=== PATIENT | female | born 1960 | race Caucasian/White ===

== ENCOUNTER → 2018-05-10 | Day surgery (SDC) | payer BC, MEDICARE ==
[2018-05-09 11:51] LABS: BASOPHILS # (AUTO) 0.1 (0.0-0.1); BASOPHILS % 0.6 % (0.0-1.0); HEMOGLOBIN 14.4 g/dL (12.0-16.0); LYMPHOCYTES # (AUTO) 2.9 (1.0-3.2); LYMPHOCYTES % 23.6 % (18.0-39.1); MEAN CORPUSCULAR HEMOGLOBIN 29.4 pg (28-32); MEAN CORPUSCULAR HGB CONC 32.7 g/dL (31-35); MONOCYTES # (AUTO) 0.7 (0.2-0.8); MONOCYTES % 5.8 % (4.4-11.3); NEUTROPHILS # (AUTO) 8.5 (2.1-6.9); NEUTROPHILS % 69.5 % (38.7-80.0); PLATELET COUNT 275 x10e3/uL (140-360); RED BLOOD COUNT 4.89 x10e6/uL (3.6-5.1); RED CELL DISTRIBUTION WIDTH 13.1 % (11.7-14.4)
[~2018-05-10] MED LIST: ADVAIR 250-501 EACH INH; ADVAIR 250/501 EA INH; ALBUTEROL SULF 0.083% NEB SOLN 3 ML NEB ONE; BACLOFEN10 MG PO; BENTYL20 MG PO; CARAFATE1 GM PO; CEPHALEXIN500 M1 PO; CHANTIX1 MG; CHERATUSSIN AC118 ML PO; COLESTIPOL HCL1 GM PO; COZAAR50 MG PO; DILTIAZEM HCL30 MG PO; GABAPENTIN100 MG; GEMFIBROZIL600 MG PO; GLIMEPIRIDE2 MG PO; GLUMETZA1000 MG PO; HYDROCODONE-HOMA5 ML; INVOKANA PEG; KETAMINE HCL INJ 50 MG/ML 10 ML VIAL ONE; LIDOCAINE HCL 2% LOCAL INJ 5 ML SDV VIAL INJ ONE; METFORMIN HCL1000 MG; METOCLOPRAMIDE HCL 10 MG/2ML VIAL ONE; MIDAZOLAM HCL 2 MG/2 ML VIAL ONE; OMEPRAZOLE40 MG; PERCOCET 10-321 EACH; PERCOCET 10-321 EACH PO; PRAVACHOL20 MG; PROAIR HFA INH8.5 GM INH; PROPOFOL IV EMULSION 10 MG/ML 20 ML VIAL ONE; PROVENTIL HFA6.7 GM INH; ROBAXIN-750750 MG PO; SERTRALINE; SINGULAIR10 MG PO; VITAMIN D2 PO; VITAMIN D350000 UNIT PO; Z.0.AMBIEN10 MG PO; Z.0.CARDIZEM30 MG PO; Z.0.CRESTOR40 MG PO; Z.0.FLUTICASONE PRO1 NS; Z.0.LISINOPRIL10 MG PO; Z.0.NITROSTAT0.4 MG SL; Z.0.PROTONIX40 MG PO; Z.0.REGLAN10 MG PO; Z.0.ULTRAM50 MG PO; Z.0.VENTOLIN HFA18 G IH; Z.1.METFORMIN HCL100 PO; ZANAFLEX4 MG PO; ZANTAC300 M1 PO; ZANTAC300 MG; ZOCOR40 MG PO; ZOFRAN ODT4 MG PO; ZOFRAN8 MG PO; ZOLOFT50 MG PO; [UNRECOGNIZED DRUG - OTHER] PO
--- NOTE | 2018-05-10 10:11 | Operative Report ---
DATE OF PROCEDURE: May 10, 2018 REFERRING PHYSICIAN: Dr. Codi Chamberlain PROCEDURE PERFORMED: Esophagogastroduodenoscopy with biopsies and esophageal dilatation. INDICATIONS FOR EGD: Upper abdominal pain and dysphagia. MEDICATION: Patient was done under MAC. Please see anesthesiologist's note. PROCEDURE: With the patient in the left lateral decubitus position, the flexible fiberoptic Olympus gastroscope was introduced into the esophagus under direct visualization without any difficulty. There was some patchy erythema noted in the distal esophagus. A mild stricture was noted at the GE junction that was dilated to a size 52-Z[place] Mao. The scope was then advanced with ease into the stomach traversing a small hiatal hernia. Mucosa overlying the antrum and the body revealed some diffuse erythema and moderate edema, and biopsies were obtained and sent to stain for H. pylori. An approximately 8-mm nodule was noted in the antrum that was biopsied. The pylorus was of normal contour and shape. It was intubated with ease. The scope was advanced all the way to the 2nd portion of the duodenum. The scope was then withdrawn slowly. Mucosa overlying the proximal 2nd portion and the duodenal bulb appeared to be within normal limits. The scope was then withdrawn back into the stomach and retroflexed. The mucosa overlying the fundus and the cardia appeared to be within normal limits. The scope was then straightened out. It was subsequently withdrawn. Patient tolerated the procedure well. IMPRESSION 1. Distal esophagitis, mild. 2. Mild stricture at gastroesophageal junction dilated to size 52-Zambian Mao. 3. Small sliding hiatal hernia. 4. Gastritis, biopsied. Biopsies sent to stain for Helicobacter pylori. 4. Approximately, 8-mm nodule, antrum, biopsied. PLAN: Follow up histology. Increase Protonix to 40 mg 1 p.o. a.c. b.i.d. Job#: [id number] RI cc: CODI CHAMBERLAIN MD
== END | disposition home or self-care (01) ==
LOC: OR 07:08
PROVIDERS: ATTEND Internal Medicine Gastroenterology
DX: K22.2 Esophageal obstruction (principal); K20.9 Esophagitis, unspecified; K29.70 Gastritis, unspecified, without bleeding; K44.9 Diaphragmatic hernia without obstruction or gangrene; K31.89 Other diseases of stomach and duodenum; K21.9 Gastro-esophageal reflux disease without esophagitis; K58.9 Irritable bowel syndrome, unspecified; I10 Essential (primary) hypertension; J44.9 Chronic obstructive pulmonary disease, unspecified; E11.9 Type 2 diabetes mellitus without complications; G62.9 Polyneuropathy, unspecified; M79.7 Fibromyalgia; G47.33 Obstructive sleep apnea (adult) (pediatric); E78.00 Pure hypercholesterolemia, unspecified; Z01.812 Encounter for preprocedural laboratory examination; Z79.84 Long term (current) use of oral hypoglycemic drugs; Z68.33 Body mass index [BMI] 33.0-33.9, adult; Z80.0 Family history of malignant neoplasm of digestive organs
CPT/HCPCS: 36415 ×2; 43239; 43450; 82948; 85025; J2001; J2250; J2765

== ENCOUNTER → 2018-05-15 | Outpatient (CLI) | payer BC, MEDICARE ==
[~2018-05-15] MED LIST changes: -ALBUTEROL SULF 0.083% NEB SOLN 3 ML NEB ONE; -KETAMINE HCL INJ 50 MG/ML 10 ML VIAL ONE; -LIDOCAINE HCL 2% LOCAL INJ 5 ML SDV VIAL INJ ONE; -METOCLOPRAMIDE HCL 10 MG/2ML VIAL ONE; -MIDAZOLAM HCL 2 MG/2 ML VIAL ONE; -PROPOFOL IV EMULSION 10 MG/ML 20 ML VIAL ONE; +REGADENOSON 0.4 MG/5 ML SYR IV ONE
--- NOTE | 2018-05-15 17:17 | Cardiology Report ---
DATE OF STUDY: May 15, 2018 NUCLEAR GATED MYOCARDIAL PERFUSION SCAN Nuclear gated myocardial perfusion scan performed as per protocol in the nuclear medicine lab at [facility]. The stress test was supervised by Dr. Antwon Parnell, and I performed only the nuclear interpretation. LEXISCAN STRESS TEST: Lexiscan was injected 0.4 mg intravenously as stress agent. Myoview was injected 10.2 mCi per resting protocol and 32 mCi for stress protocol. IMPRESSION 1. Normal gated myocardial perfusion scan. 2. Left ventricular ejection fraction is 60% to 65%. 3. No evidence of ischemia or scar is noted. Job#: [id number]
== END ==
LOC: NM 10:12
PROVIDERS: ATTEND Internal Medicine Cardiovascular Disease
DX: I25.10 Atherosclerotic heart disease of native coronary artery without angina pectoris (principal)
CPT/HCPCS: 78452; 93017; A9502

== ENCOUNTER → 2018-09-20 | Day surgery (SDC) | payer BC, MEDICARE ==
[2018-09-18 13:51] LABS: ALANINE AMINOTRANSFERASE 40 IU/L (0-55)
[~2018-09-20] MED LIST changes: +ADVIL COLD & S1 EACH; +AFRIN15 ML; +ASPIRIN81 MG; +ATORVASTATIN CA20 MG PO; +DICYCLOMINE HCL20 MG PO; +FENTANYL CITRATE/PF 100MCG/2 ML INJ ONE; +GABAPENTIN300 MG PO; +GLIPIZIDE5 MG PO; +HYOSCYAMINE SULFATE 0.5 MG/ML INJ ONE; +INSULIN REGULAR, HUMAN 100 UNIT/1 ML 3ML VIAL ONE; +LEVOTHYROXINE50 MCG PO; +METHOCARBAMOL750 MG PO; +MIDAZOLAM HCL 2 MG/2 ML VIAL ONE; +MUCINEX DM ER1 EACH PO; +NORCO 10-325 T1 EACH; +PEPCID20 MG; +PROMETHAZINE HC25 M1 PO; +PROPOFOL IV EMULSION 10 MG/ML 50 ML VIAL ONE; -REGADENOSON 0.4 MG/5 ML SYR IV ONE; +SERTRALINE HCL50 MG PO; +XIFAXAN550 MG
--- OUTSIDE RECORDS SUMMARY | 2018-09-20 06:35 | XMS REPORT ---
Author Author [facility] Address Unknown Phone Unavailable Care Team Providers Care Consulting Senior Practice Director Name Role Phone SADIA SOW Unavailable Unavailable Problems This patient has no known problems. Allergies, Adverse Reactions, Alerts This patient has no known allergies or adverse reactions. Medications This patient has no known medications. Results Test Description Test Time Test Comments Text Results Atomic Results Result Comments Stress Test - Treadmill ONLY 2018-05-15 16:48:00 [place] [address] Patient Name : MISTY CASTORENA MR #: [id number] : 1960 Age/Sex: 57/F Adm Physician : SADIA SOW MD Admit Date : Location : [place] Room/Bed : REPORT: Cardiology Report DATE OF STUDY: May 15, 2018 NUCLEAR GATED MYOCARDIAL PERFUSION SCAN Nuclear gated myocardial perfusion scan performed as per protocol in the nuclear medicine lab at [facility]. The stress test was supervised by Dr. Sadia Sow, and I performed only the nuclear interpretation. LEXISCAN STRESS TEST: Lexiscan was injected 0.4 mg intravenously as stress agent. Myoview was injected 10.2 mCi per resting protocol and 32 mCi for stress protocol. IMPRESSION 1. Normal gated myocardial perfusion scan. 2. Left ventricular ejection fraction is 60% to 65%. 3. No evidence of ischemia or scar is noted. Job#: [id number] Signature Date Dictated By: YURIDIA CHAUDHRY MD Transcribed By: RAJAT on 05/15/18 <Electronically signed by YURIDIA CHAUDHRY MD><<Signature on File>>06/08/18 4720 COPY TO:
--- OUTSIDE RECORDS SUMMARY | 2018-09-20 06:35 | XMS REPORT | Continuity of Care Document ---
Author Author [facility] Interface Address Unknown Phone Unavailable Problems Problem Status Onset Date Classification Date Reported Comments Source DX: M50.30=OTHER CERVICAL DISC DEGENERAT Active 02/18/2017 [place] M50.30 - OTHER CERVICAL DISC DEGENERATI Active 12/31/2016 [facility] [place] ICD 787.6 / CPT 97512 67881-80 Active 08/15/2013 [facility] UNK Active 08/15/2013 [facility] Abnormal feces<sup>1</sup> Active 08/13/2013 Problem 09/08/2017 Data migrated from [employer] on 04/19/15. HOLGERD [place],[facility] Incontinence of feces<sup>3</sup> Active 08/13/2013 Problem 09/08/2017 Data migrated from [employer] on 04/19/15. HOLGERD [place],[facility] Urinary incontinence<sup>7</sup> Active 08/13/2013 Problem 09/08/2017 Data migrated from [employer] on 04/19/15. [facility] [place],[facility] Acid reflux Active Problem 09/08/2017 [facility] [place],[facility] Asthma Active Problem 09/08/2017 [facility] [place],[facility] Chronic cough Active Problem 09/08/2017 [facility] [place],[facility] COPD Active Problem 09/08/2017 [facility] [place],[facility] Diabetes mellitus type 2 Active Problem 09/08/2017 [facility] [place], [place] Difficulty swallowing Active Problem 09/08/2017 [facility] [place], [place] Hypercholesterolemia Active Problem 09/08/2017 [facility] [place],[facility] Hypertension Active Problem 09/08/2017 [facility] [place], [place] Incontinence<sup>2</sup> Active Problem 09/08/2017 urine/feces JULIANA Cotton, [place] Muscle spasm - tone<sup>4</sup> Active Problem 09/08/2017 arms, stomach [facility] [place],[facility] Sleep apnea Active Problem 09/08/2017 JULIANA [place] Smoker Active Problem 09/08/2017 OPIEdwin [place], [place] SOB - Shortness of breath Active Problem 09/08/2017 JULIANA Cotton,[facility] Triglyceride level - finding<sup>5</sup> Active Problem 09/08/2017 increased JULIANA [facility] Tubal <sup>6</sup> Resolved Problem 09/08/2017 x 2 JULIANA [facility] Acid reflux Active Problem 08/24/2013 [facility] Asthma Active Problem 08/24/2013 [facility] Chronic cough Active Problem 08/24/2013 [facility] COPD Active Problem 08/24/2013 [facility] Diabetes mellitus type 2 Active Problem 08/24/2013 [facility] Difficulty swallowing Active Problem 08/24/2013 [facility] Hypercholesterolemia Active Problem 08/24/2013 [facility] Hypertension Active Problem 08/24/2013 [facility] Incontinence<sup>1</sup> Active Problem 08/24/2013 1urine/feces [facility] Multiple gastric ulcers Inactive Problem 08/24/2013 [facility] Muscle spasm - tone<sup>2</sup> Active Problem 08/24/2013 2arms, stomach [facility] Sleep apnea Active Problem 08/24/2013 [facility] Smoker Active Problem 08/24/2013 [facility] SOB - Shortness of breath Active Problem 08/24/2013 [facility] Triglyceride level - finding<sup>3</sup> Active Problem 08/24/2013 3increased [facility] Tubal <sup>4</sup> Resolved Problem 08/24/2013 4x 2 [facility] OTHER CERVICAL DISC DEGENERATION, UNSP C Active [facility] Medications Medication Details Route Status Patient Instructions Ordering Provider Order Date Source Lactated Ringers IV 500 mL 500 mL, Rate: 25 ml/hr, Infuse over: 20 hr, Route: IV, Dosing Weight 83.636 kg, Total Volume: 500, Start date: 08/22/13 8:54:00, Duration: 1 day, Stop date: 08/23/13 8:53:00 IV No Longer Active Catrachito 08/22/2013 [facility] ketorolac 10 mg oral tablet 10 mg, 1 tab, PO, Q6H, PRN, 20 tab, Pain, Substitution Allowed, TAB PO Active Voloyiannis 08/22/2013 [facility] ergocalciferol 50,000 intl units oral capsule 50,000 IntlUnit, 1 cap, PO, 2x/Wk, 8 cap, Substitution Allowed, CAP PO Active 08/20/2013 [facility] Melatonin 3 mg oral tablet 3 mg, 1 tab, PO, Bedtime, PRN, 60 tab, for insomnia, Substitution Allowed, Maintenance, TAB PO Active 08/20/2013 [facility] amitriptyline 25 mg oral tablet 25 mg, 1 tab, PO, Bedtime, 270 tab, Substitution Allowed, TAB PO Active 08/20/2013 [facility] Ancef + Sodium Chloride 0.9% IV 100 mL 1 gm, Route: IVPB, ONCE, Dosing Weight 83.636, kg, Start date: 08/20/13 15:56:00, Duration: 1 doses or times, Stop date: 08/20/13 15:56:00 IVPB Active [facility] 08/20/2013 [facility] Allergies, Adverse Reactions, Alerts Substance Category Reaction Severity Reaction type Status Date Reported Comments Source Immunizations Immunization Date Given Site Status Last Updated Comments Source Results Order Name Results Value Reference Range Date Interpretation Comments Source Ribs unilateral DX Ribs unilateral DX EXAM: Ribs unilateral DX HISTORY: - other chest pain r07.89 COMPARISON: None Right rib series IMPRESSION: No rib fracture or rib lesion is seen. 09/05/2017 - - Read by: Wicho Aguayo MD Dictated Date/time: 09/06/17 07:37 Electronically Signed by: Wicho Aguayo MD 09/06/17 07:38 FINAL REPORT [facility] Spine cervical myelogram CT Spine cervical myelogram CT CT CERVICAL SPINE MYELOGRAM INDICATION: Cervical spine and arm pain, M50.30 Other cervical disc degeneration, unspecified cervical region; neck and arm pain x 4 months; hx neck surgery - dlp: 422; CAM COMPARISON: None DISCUSSION: Alignment: Vertebral body alignment is within normal limits. Craniovertebral junction: There appears to be leaked contrast, from the subarachnoid space, beneath the posterior longitudinal ligament. This finding will be discussed in greater detail below. There are otherwise no significant abnormalities. The foramen magnum is grossly patent. Vertebral bodies: There is anterior fusion, with compression plate and screws, from C4 through C6. There is no evidence of hardware loosening or failure. There are interbody fusion grafts at C4-C5 and C5-C6. There is solid osseous fusion of the vertebral bodies, from C4 through C6. There are no compression or displaced fractures. Spinal cord: The spinal cord is grossly normal in morphology. Evaluation is limited at the level of the anterior fusion hardware, secondary to obscuration by metallic streak artifact. Paraspinal soft tissues: Grossly unremarkable. Disc spaces, spinal canal and foramina: Above the C2-C3 level, contrast is seen in the ventral epidural space, up to the skull base. Injected contrast is seen beneath the posterior longitudinal ligament and there appear to be dural defects on either side of the posterior longitudinal ligament, with contrast flowing freely from the thecal sac, into the epidural space. C2-C3: The disc space is maintained. There is no significant arthrosis. The spinal canal and foramina are grossly patent. C3-C4: The disc space is maintained. There is mild posterior disc osteophyte complex, resulting in mild anterior thecal effacement, without spinal canal stenosis. There is no significant arthrosis. The foramina are patent. C4-C5: The vertebral bodies are fused. Posterior osteophytosis results in anterior thecal effacement, without spinal canal stenosis. There is mild bilateral uncovertebral arthrosis, without significant foraminal stenosis. C5-C6: The vertebral bodies are fused. Posterior osteophytosis results in anterior thecal effacement, grossly without significant spinal canal stenosis. Arthrosis results in mild right foraminal stenosis. The left foramen is patent. C6-C7: There is disc space narrowing. The spinal canal is grossly patent. Arthrosis contributes to moderate to severe bilateral foraminal stenosis. C7-T1: The disc space is maintained. There is no significant arthrosis. The spinal canal and foramina are grossly patent. IMPRESSION: 1. Anterior fusion of the cervical spine, from C4 through C6, as described. There is complete osseous fusion of the vertebral bodies. 2. Apparent bilateral ventral dural defects, above the C2-C3 level, with communication of the dural and ventral epidural space. Contrast is seen deep to the posterior longitudinal ligament. 3. Mild cervical spondylosis, as described. Foraminal stenosis is the worst at C6- C7, appearing moderate to severe. There is no spinal canal stenosis. SL:16 03/04/2017 - - Read by: Nikhil Love MD Dictated Date/time: 03/04/17 18:11 Electronically Signed by: Nikhil Love MD 03/04/17 18:48 FINAL REPORT [facility] Spine cervical myelogram DX Spine cervical myelogram DX FLUOROSCOPIC GUIDED CERVICAL MYELOGRAM HISTORY: M50.30 Other cervical disc degeneration, unspecified cervical region, pt. stated hx. of cervical fusion approx. 5 years ago, currently with left sided numbness and neck pain - fluoro time: 42 sec. dose: 36 mGy [id number] Lidocaine; COMPARISON: None available. TECHNIQUE AND FINDINGS: Under fluoroscopic guidance a 22-gauge spinal needle was introduced into the thecal sac at the L2/L3 level. Approximately 10 mL of iodinated contrast was administered intrathecally. The patient tolerated the procedure well without complications. SL: [id number] 03/04/2017 - - Read by: Carlos Eduardo Poon MD Dictated Date/time: 03/04/17 10:26 Electronically Signed by: Carlos Eduardo Poon MD 03/04/17 10:28 FINAL REPORT [facility] Chest 2 views DX Chest 2 views DX CHEST RADIOGRAPHY CLINICAL HISTORY: Cough. COMPARISON IMAGIN01/14/2012 radiography. TECHNIQUE: Two views. FINDINGS: Lungs: No significant consolidation or nodularity. Pleura: No apparent pneumothorax or pleural effusion. Cardiac Silhouette: Contour is within normal limits. Bones: No fracture; status post ACDF. IMPRESSION: No acute abnormality. 05/06/2015 - - Read by: Delonte Lincoln MD Dictated Date/time: 05/06/15 11:42 Electronically Signed by: Delonte Lincoln MD 05/06/15 11:43 FINAL REPORT JUL[facility] BEDSIDE GLUCOSE TESTING Glucose POC 175 mg/dL 70 - 99 08/22/2013 HI 1Interpretive Data: Upper Reportable Limit: 200 mg/dL. [facility] BEDSIDE GLUCOSE TESTING Glucose POC 198 mg/dL 70 - 99 08/22/2013 HI 2Interpretive Data: Upper Reportable Limit: 200 mg/dL. [facility] CHEMISTRY Glucose Lvl 121 mg/dL 70 - 99 08/20/2013 HI 4Interpretive Data: Adult reference range values reflect the clinical guidelines of the [place] [employer]. [facility] CHEMISTRY BUN 9 mg/dL 7 - 08/20/2013 Normal [facility] CHEMISTRY CO2 30 meq/L 24 - 32 08/20/2013 Normal [facility] CHEMISTRY eGFR 106 mL/min/1.73m2 08/20/2013 NA 3Result Comment: The eGFR is calculated using the CKD-EPI formula. In most young, healthy individuals the eGFR will be >90 mL/min/1.73m2. The eGFR declines with age. An eGFR of 60-89 may be normal in some populations, particularly the elderly, for whom the CKD-EPI formula has not been extensively validated. Use of the eGFR is not recommended in the following populations: Individuals with unstable creatinine concentrations, including patients and those with serious co-morbid conditions. Patients with extremes in muscle mass or diet. The data above are obtained from the National Kidney Disease Education Program (NKDEP) which additionally recommends that when the eGFR is used in patients with extremes of body mass index for purposes of drug dosing, the eGFR should be multiplied by the estimated BMI. [facility] CHEMISTRY Chloride Lvl 104 meq/L 95 - 109 08/20/2013 Normal [facility] CHEMISTRY Calcium Lvl 9.6 mg/dL 8.5 - 10.5 08/20/2013 Normal [facility] CHEMISTRY Creatinine Lvl 0.6 mg/dL 0.5 - 1.4 08/20/2013 Normal [facility] CHEMISTRY Sodium Lvl 143 meq/L 135 - 145 08/20/2013 Normal [facility] CHEMISTRY Potassium Lvl 4.1 meq/L 3.5 - 5.1 08/20/2013 Normal [facility] CHEMISTRY AGAP 13.1 meq/L 10.0 - 20.0 08/20/2013 Normal [facility] CHEMISTRY S Preg Negative *NA* (08/20/2013 16:45:00) Negative 08/20/2013 NA [facility] HEMATOLOGY Hgb 13.8 g/dL 12.0 - 16.0 08/20/2013 Normal [facility] HEMATOLOGY Hct 43.3 % 36.0 - 48.0 08/20/2013 Normal [facility] Vital Signs Vital Sign Value Date Comments Source Diastolic (mm Hg) 69 08/22/2013 [facility] Systolic (mm Hg) 112 08/22/2013 [facility] Respitory Rate 17 08/22/2013 [facility] Respitory Rate 17 08/22/2013 [facility] Diastolic (mm Hg) 69 08/22/2013 [facility] Systolic (mm Hg) 110 08/22/2013 [facility] Diastolic (mm Hg) 86 08/22/2013 [facility] Systolic (mm Hg) 99 08/22/2013 [facility] Respitory Rate 16 08/22/2013 [facility] Heart Rate 116 08/22/2013 [facility] Temperature Oral (F) 98.1 F 08/20/2013 [facility] Heart Rate 109 08/20/2013 [facility] Height 160.02 cm 08/20/2013 [facility] Weight 83.636 08/20/2013 [facility] Encounters Location Location Details Encounter Type Encounter Number Reason For Visit Attending Provider ADM Date DC Date Status Source [facility] DS [id number] LYNN GUILLEN 08/22/2013 08/22/2013 Active [facility] [place] [facility] [id number] Hai Armas 05/06/2015 05/07/2015 [facility] [place] [facility] [id number] Codi Chamberlain 03/04/2017 03/05/2017 [facility] [place] [facility] [id number] Rosio Ramirez 09/05/2017 09/06/2017 [facility] [place] [facility] DS [id number] UNK THENATHANOROS VOLOYIANNIS Active [facility] Procedures Procedure Code Date Perfomer Comments Source Colonoscopy [id number] 11/21/2012 [facility] [place] Esophagesophagostomy<sup>1</sup> [id number] 11/21/2012 with dilation of esophogus [facility] [place] Colonoscopy [id number] 11/21/2012 [facility] Esophagesophagostomy<sup>1</sup> [id number] 11/21/2012 with dilation of esophogus [facility] Appendectomy [id number] [facility] [place] Cholecystectomy [id number] [facility] [place] Dilation of esophagus [id number] [facility] [place] Hysterectomy [id number] [facility] [place] Suspension of bladder [id number] [facility] [place] Vaginal delivery, medical personnel present<sup>2</sup> [id number] x 4 [facility] [place] Appendectomy [id number] [place] Cholecystectomy [id number] [facility] Dilation of esophagus [id number] [place] Hysterectomy [id number] [place] Suspension of bladder [id number] [facility] Vaginal delivery, medical personnel present<sup>2</sup> [id number] x 4 [facility]
[2018-09-20 10:07] VITALS: BP 143/94
--- NOTE | 2018-09-20 10:56 | Operative Report ---
DATE OF PROCEDURE: September 20, 2018 REFERRING PHYSICIAN: Dr. Codi Chamberlain PROCEDURE PERFORMED: Colonoscopy and polypectomy with biopsies. INDICATIONS FOR PROCEDURE: Surveillance colonoscopy, father with colon cancer, personal history of colon polyps, history of diarrhea. MEDICATION: Patient was done under MAC. Please see anesthesiologist's note. PROCEDURE: With the patient in the left lateral decubitus position, the flexible fiberoptic Olympus colonoscope was inserted into the rectum with ease and advanced all the way to the cecum. Mucosa overlying the cecum appeared to be within normal limits. The ileocecal valve was intubated and the scope was advanced into the terminal ileum. Biopsies were obtained. The scope was then withdrawn back into the colon. It was then withdrawn slowly and a prominent fold was noted in the proximal ascending colon that was biopsied. Random biopsies were obtained from throughout the colon as patchy mild to moderate inflammatory changes were noted. There was some diverticular disease noted in the sigmoid and distal descending. One polyp was hot biopsied from the sigmoid. Similar inflammatory findings also noted in the rectum. Biopsies were obtained. The scope was then retroflexed into the distal rectum and small internal hemorrhoids were noted, none of which was actively bleeding. The scope was then straightened out. It was subsequently withdrawn after securing an adequate stool specimen that was sent for the appropriate stool studies. Patient tolerated the procedure well. IMPRESSION 1. Prominent fold, proximal ascending colon, biopsied. 2. Colitis, mild, random biopsies obtained. 3. Diverticulosis. 4. Sigmoid colon polyp, hot biopsied. 5. Proctitis, mild, biopsied. PLAN: Follow up histology. Follow up stool studies. Continue Bentyl 20 mg 1 p.o. q.i.d. Add VSL #3 one p.o. daily. Job#: [id number] RI cc: CODI CHAMBERLAIN MD
[2018-09-20 15:20] LABS: C DIFFICILE TOXIN A&B AMP PROB NEGATIVE (NEGATIVE); WBC,FECAL (FECAL LACTOFERRIN) NEGATIVE (NEGATIVE)
== END | disposition home or self-care (01) ==
LOC: OR 06:31
PROVIDERS: ATTEND Internal Medicine Gastroenterology
DX: Z09 Encounter for follow-up examination after completed treatment for conditions other than malignant neoplasm (principal); K63.5 Polyp of colon; K52.9 Noninfective gastroenteritis and colitis, unspecified; K63.89 Other specified diseases of intestine; K62.89 Other specified diseases of anus and rectum; K57.30 Diverticulosis of large intestine without perforation or abscess without bleeding; K64.8 Other hemorrhoids; K29.70 Gastritis, unspecified, without bleeding; K21.0 Gastro-esophageal reflux disease with esophagitis; J44.9 Chronic obstructive pulmonary disease, unspecified; G47.33 Obstructive sleep apnea (adult) (pediatric); I10 Essential (primary) hypertension; E11.9 Type 2 diabetes mellitus without complications; E03.9 Hypothyroidism, unspecified; Z01.810 Encounter for preprocedural cardiovascular examination; Z01.812 Encounter for preprocedural laboratory examination; Z79.82 Long term (current) use of aspirin; Z79.84 Long term (current) use of oral hypoglycemic drugs; Z68.33 Body mass index [BMI] 33.0-33.9, adult; Z87.891 Personal history of nicotine dependence; Z80.0 Family history of malignant neoplasm of digestive organs
CPT/HCPCS: 36415 ×2; 45380; 45384; 82948; 83630; 83993; 84450; 84460; 87045; 87177; 87328; 87493; 93005; J1980; J2250; 45378

== ENCOUNTER → 2018-10-02 | Outpatient (CLI) | payer BC, MEDICARE ==
[~2018-10-02] MED LIST changes: -FENTANYL CITRATE/PF 100MCG/2 ML INJ ONE; -HYOSCYAMINE SULFATE 0.5 MG/ML INJ ONE; -INSULIN REGULAR, HUMAN 100 UNIT/1 ML 3ML VIAL ONE; -MIDAZOLAM HCL 2 MG/2 ML VIAL ONE; -PROPOFOL IV EMULSION 10 MG/ML 50 ML VIAL ONE
--- NOTE | 2018-10-02 11:36 | Diagnostic Imaging Report ---
PROCEDURE:US LIVER COMPARISON:None. INDICATIONS:ELEVATED LIVER ENZYMES TECHNIQUE: Hernandez-scale and color doppler transverse and longitudinal images of the right upper quadrant of the abdomen were obtained. FINDINGS: Liver: Liver is enlarged measuring 21.4 cm in right mid-clavicular line. Increased echogenicity. No masses. Main portal vein: Measures 1.1 cm, hepatopetal flow. Gallbladder: Status post cholecystectomy. Common Bile Duct: Measures 0.3 cm Sonographic Almanza's sign: Negative Right kidney: Measures 11.9 cm. Normal echogenicity. No solid masses or hydronephrosis. Pancreas: Limited evaluation due to overlying bowel gas. Inferior vena cava: Limited evaluation due to overlying bowel gas. Aorta: Within normal limits Ascites: None in the right upper quadrant of the abdomen. CONCLUSION: Hepatomegaly with hepatic steatosis. Status post cholecystectomy. Dictated by: DAVON GREENFIELD M.D. on 10/02/2018 at 11:46 Electronically approved by: DAVON GREENFIELD M.D. on 10/02/2018 at 11:46
== END ==
LOC: US 09:46
PROVIDERS: ATTEND Internal Medicine Gastroenterology
DX: R74.8 Abnormal levels of other serum enzymes (principal)
CPT/HCPCS: 76705

== ENCOUNTER → 2020-01-24 | Day surgery (SDC) | payer BC, MEDICARE ==
[2020-01-23 09:32] LABS: BASOPHILS # (AUTO) 0.1 (0.0-0.1); BASOPHILS % 0.5 % (0.0-1.0); HEMATOCRIT 40.6 % (34.2-44.1); HEMOGLOBIN 12.8 g/dL (12.0-16.0); LYMPHOCYTES # (AUTO) 3.3 (1.0-3.2); LYMPHOCYTES % 25.7 % (18.0-39.1); MEAN CORPUSCULAR HEMOGLOBIN 28.1 pg (28-32); MEAN CORPUSCULAR HGB CONC 31.5 g/dL (31-35); MONOCYTES # (AUTO) 0.8 (0.2-0.8); MONOCYTES % 6.5 % (4.4-11.3); NEUTROPHILS # (AUTO) 8.5 (2.1-6.9); NEUTROPHILS % 66.8 % (38.7-80.0); PLATELET COUNT 289 x10e3/uL (140-360); RED BLOOD COUNT 4.56 x10e6/uL (3.6-5.1); RED CELL DISTRIBUTION WIDTH 13.6 % (11.7-14.4)
--- NOTE | 2020-01-23 09:53 | Diagnostic Imaging Report ---
EXAMINATION: CHEST 2 VIEWS INDICATION: Pre-operative COMPARISON: None FINDINGS: LINES/TUBES:None LUNGS:The lungs are hyperinflated. Mild bilateral emphysematous changes. No focal consolidation or pulmonary edema. PLEURA:No pleural effusion or pneumothorax. MEDIASTINUM:The cardiomediastinal silhouette appears normal in size and shape. Atherosclerotic calcifications of the thoracic aorta. BONES/SOFT TISSUES:No acute osseous injury. Old right lateral rib fractures. ABDOMEN:No free air under the diaphragm. IMPRESSION: Hyperinflated lungs with mild emphysematous changes. No focal pneumonia or pulmonary edema. Signed by: Autumn Simms MD on 01/23/2020 9:50 AM
[~2020-01-24] MED LIST changes: +ALBUTEROL SULFATE HFA 8GM INHALATION AEROSOL INH ONE; +BENZOCAINE/TETRACAINE/BUTAMBEN AERO SPRAY 56 GM CAN ONE; +CYCLOBENZAPRINE10 MG PO; +GLUCAGON FOR INJ 1 MG VIAL ONE; +IMODIUM A-1 MG/7.5 M; +KETAMINE HCL INJ 50 MG/ML 10 ML VIAL ONE; +LIDOCAINE HCL 2% LOCAL INJ 5 ML SDV VIAL INJ ONE; +LIDOCAINE HCL50 ML TOP; +METOCLOPRAMIDE10 MG PO; +MIDAZOLAM HCL 2 MG/2 ML VIAL ONE; +NITROGLYCERIN0.4 MG SL; +PROPOFOL IV EMULSION 10 MG/ML 50 ML VIAL ONE; +SIMETHICONE 40 MG/0.6 ML BTL ONE; +ZOFRAN8 MG
[2020-01-24] MEDS: HYOSCYAMINE 0.125 MG TAB ONE (08:53)
[2020-01-24 11:40] VITALS: BP 142/84
--- NOTE | 2020-01-24 12:47 | Operative Report ---
DATE OF PROCEDURE: 01/24/2020 SURGEON: Duke Fields MD PROCEDURES: EGD with biopsies and esophageal dilatation and colonoscopy with polypectomy. INDICATIONS FOR EGD: Dysphagia, nausea. INDICATIONS FOR COLONOSCOPY: Colorectal cancer screening, father with colon cancer, personal history of colon polyps. MEDICATIONS: The patient was done under MAC, please see anesthesiologist's note. PROCEDURE IN DETAIL: With the patient in the left lateral decubitus position, the flexible fiberoptic Olympus gastroscope was introduced into the esophagus under direct visualization without any difficulty. There was some patchy erythema noted in distal esophagus. There was a mild stricture noted at the GE junction that was dilated to size 52-[place] Mao. The scope was then advanced with ease into the stomach and mucosa overlying the antrum and the body revealed some patchy erythema and [id number] edema, and biopsies were obtained and sent to stain for H. pylori. Pylorus was of normal contour and shape, was intubated with ease and the scope was advanced all the way to the second portion of the duodenum. The scope was then withdrawn slowly, mucosa overlying the proximal second portion as well as the duodenal bulb were grossly unremarkable and biopsies were obtained to rule out sprue. The scope was then withdrawn back into the stomach and retroflexed, and mucosa overlying the fundus and the cardia appeared to be within normal limits. The scope was then straightened out, it was subsequently withdrawn, and the patient tolerated the procedure well. IMPRESSION: 1. Distal esophagitis, mild. 2. Esophageal stricture, GE junction, dilated to size 52-[place] Mao. 3. Small sliding hiatal hernia (not mentioned in the body of the report). 4. Gastritis, biopsied, biopsies sent to stain for Helicobacter pylori. 5. Rule out sprue. PLAN: Follow up histology. Continue current PPI therapy or initiate Protonix 40 mg 1 p.o. before meals b.i.d. The patient was then turned around and after adequate lubrication of the anal canal, a flexible fiberoptic Olympus colonoscope was inserted into the rectum with ease and advanced all the way to the cecum. Prep overall was suboptimal to poor with [id number] amount of retained scattered fecal material. The scope was subsequently withdrawn, whatever was visualized the mucosa overlying the cecum, ascending colon, transverse colon, and sigmoid colon grossly appeared to be within normal limits. Some diverticular disease was noted in the distal descending and the sigmoid colon. Two polyps were hot biopsied from the sigmoid. The rectum grossly appeared to be within normal limits. The scope was then retroflexed into the distal rectum and small internal hemorrhoids were noted, none of which was actively bleeding. The scope was then straightened out, it was subsequently withdrawn, and the patient tolerated the procedure well. IMPRESSION: 1. Suboptimal to poor prep. 2. Diverticulosis. 3. Sigmoid colon polyps x2, hot biopsied. 4. Internal hemorrhoids, none actively bleeding. PLAN: Follow up histology. The patient will need a repeat colonoscopy after a better prep. Duke Fields MD [facility] [place] /[id number] cc: Codi hCamberlain MD
== END | disposition home or self-care (01) ==
LOC: OR 06:55
PROVIDERS: ATTEND Internal Medicine Gastroenterology
DX: K29.50 Unspecified chronic gastritis without bleeding (principal); K63.5 Polyp of colon; K22.2 Esophageal obstruction; K44.9 Diaphragmatic hernia without obstruction or gangrene; K21.9 Gastro-esophageal reflux disease without esophagitis; R19.7 Diarrhea, unspecified; K29.60 Other gastritis without bleeding; K20.8 Other esophagitis; K57.30 Diverticulosis of large intestine without perforation or abscess without bleeding; K64.8 Other hemorrhoids; G47.33 Obstructive sleep apnea (adult) (pediatric); J44.9 Chronic obstructive pulmonary disease, unspecified; E11.9 Type 2 diabetes mellitus without complications; I10 Essential (primary) hypertension; G89.29 Other chronic pain; M79.7 Fibromyalgia; K58.9 Irritable bowel syndrome, unspecified; E78.00 Pure hypercholesterolemia, unspecified; F32.9 Major depressive disorder, single episode, unspecified; F17.210 Nicotine dependence, cigarettes, uncomplicated; Z01.812 Encounter for preprocedural laboratory examination; Z01.818 Encounter for other preprocedural examination; Z79.84 Long term (current) use of oral hypoglycemic drugs; Z68.31 Body mass index [BMI] 31.0-31.9, adult; Z80.0 Family history of malignant neoplasm of digestive organs
CPT/HCPCS: 36415 ×2; 43239; 43450; 45384; 71046; 82948; 85025; J1610; J2001; J2250; J2704; 45378

== ENCOUNTER → 2021-02-12 | Day surgery (SDC) | payer BC, MEDICARE ==
[2021-02-10 10:36] LABS: BASOPHILS % 0.4 % (0.0-1.0); HEMATOCRIT 38.8 % (34.2-44.1); HEMOGLOBIN 12.4 g/dL (12.0-16.0); MEAN CORPUSCULAR HEMOGLOBIN 29.2 pg (28-32); MEAN CORPUSCULAR VOLUME 91.5 fL (81-99); MONOCYTES # (AUTO) 0.8 (0.2-0.8); MONOCYTES % 7.1 % (4.4-11.3); NEUTROPHILS # (AUTO) 7.3 (2.1-6.9); PLATELET COUNT 242 x10e3/uL (140-360); RED BLOOD COUNT 4.24 x10e6/uL (3.6-5.1); RED CELL DISTRIBUTION WIDTH 13.1 % (11.7-14.4)
[~2021-02-12] MED LIST changes: +ALBUTEROL SULF 0.083% NEB SOLN 3 ML NEB ONE; -ALBUTEROL SULFATE HFA 8GM INHALATION AEROSOL INH ONE; -BENZOCAINE/TETRACAINE/BUTAMBEN AERO SPRAY 56 GM CAN ONE; +DEXAMETHASONE SOD PHOS INJ 4 MG/ML VIAL ONE; +DILTIAZEM HCL120 MG PO; +FENTANYL CITRATE/PF 100MCG/2 ML INJ ONE; +HYOSCYAMINE SULFATE 0.5 MG/ML INJ ONE; -KETAMINE HCL INJ 50 MG/ML 10 ML VIAL ONE; -METFORMIN HCL1000 MG; +METFORMIN HCL1000 MG PO; +OMEPRAZOLE40 MG PO; +PANTOPRAZOLE 40 MG 10ML VIAL ONE; +PROPOFOL IV EMULSION 10 MG/ML 20 ML VIAL ONE; -PROPOFOL IV EMULSION 10 MG/ML 50 ML VIAL ONE; -SIMETHICONE 40 MG/0.6 ML BTL ONE; +TRELEGY ELLIPT1 EACH INH; -ZOFRAN8 MG
[2021-02-12 10:05] VITALS: BP 129/79
== END | disposition home or self-care (01) ==
LOC: OR 06:05
PROVIDERS: ATTEND Internal Medicine Gastroenterology
DX: K20.90 Esophagitis, unspecified without bleeding (principal); K63.5 Polyp of colon; K29.50 Unspecified chronic gastritis without bleeding; K57.30 Diverticulosis of large intestine without perforation or abscess without bleeding; K21.9 Gastro-esophageal reflux disease without esophagitis; K64.8 Other hemorrhoids; G47.33 Obstructive sleep apnea (adult) (pediatric); J44.9 Chronic obstructive pulmonary disease, unspecified; I25.10 Atherosclerotic heart disease of native coronary artery without angina pectoris; E78.5 Hyperlipidemia, unspecified; K76.0 Fatty (change of) liver, not elsewhere classified; M79.7 Fibromyalgia; I10 Essential (primary) hypertension; E11.9 Type 2 diabetes mellitus without complications; Z01.810 Encounter for preprocedural cardiovascular examination; Z01.812 Encounter for preprocedural laboratory examination; Z20.822 Contact with and (suspected) exposure to COVID-19; Z79.84 Long term (current) use of oral hypoglycemic drugs; Z99.81 Dependence on supplemental oxygen; Z95.0 Presence of cardiac pacemaker; Z80.0 Family history of malignant neoplasm of digestive organs
CPT/HCPCS: 36415 ×2; 43239; 43450; 45380; 45385; 82948; 85025; 93005; C9113; J1100; J1610; J1980; J2001; J2250; J2704; J3010; U0002; 45378

== ENCOUNTER 2022-02-09 06:44 | Inpatient (IN) | payer MEDICARE, OTHER ==
[~2022-02-09] VITALS: Ht 154.9 cm; Wt 79.5 kg
[2022-02-09] VITALS (16 sets, daily range): BP systolic 116–167; BP diastolic 71–82
[~2022-02-09 06:44] MED LIST changes: -ALBUTEROL SULF 0.083% NEB SOLN 3 ML NEB ONE; -DEXAMETHASONE SOD PHOS INJ 4 MG/ML VIAL ONE; -FENTANYL CITRATE/PF 100MCG/2 ML INJ ONE; -GLUCAGON FOR INJ 1 MG VIAL ONE; -HYOSCYAMINE SULFATE 0.5 MG/ML INJ ONE; -LIDOCAINE HCL 2% LOCAL INJ 5 ML SDV VIAL INJ ONE; -MIDAZOLAM HCL 2 MG/2 ML VIAL ONE; -PANTOPRAZOLE 40 MG 10ML VIAL ONE; -PROPOFOL IV EMULSION 10 MG/ML 20 ML VIAL ONE
[2022-02-09] MEDS ORDERED: SODIUM CHLORIDE 0.9% 1000ML 1,000 ML IV STA (06:52)
[2022-02-09] MEDS: ALBUTEROL/IPRATROPIUM 3 ML NEB NEB SCH ×5 (07:00→23:35)
[2022-02-09 07:13] LABS: BASOPHILS # (AUTO) 0.1 (0.0-0.1); BASOPHILS % 0.3 % (0.0-1.0); HEMATOCRIT 38.3 % (34.2-44.1); HEMOGLOBIN 11.8 g/dL (12.0-16.0); LYMPHOCYTES # (AUTO) 1.2 (1.0-3.2); LYMPHOCYTES % 7.4 % (18.0-39.1); MEAN CORPUSCULAR HEMOGLOBIN 28.2 pg (28-32); MEAN CORPUSCULAR HGB CONC 30.8 g/dL (31-35); MEAN CORPUSCULAR VOLUME 91.6 fL (81-99); NEUTROPHILS % 85.6 % (38.7-80.0); PLATELET COUNT 341 x10e3/uL (140-360); RED BLOOD COUNT 4.18 x10e6/uL (3.6-5.1); RED CELL DISTRIBUTION WIDTH 15.4 % (11.7-14.4)
[2022-02-09] MEDS ORDERED: CEFTRIAXONE 1 GM in SODIUM CHLORIDE 0.9% 50ML 50 ML IV ONE (07:15)
[2022-02-09 07:18] LABS: CLARITY,URINE CLOUDY (CLEAR); COLOR,URINE YELLOW (YELLOW); KETONES,URINE NEGATIVE (NEGATIVE); LEUKOCYTE ESTERASE ,URINE NEGATIVE (NEGATIVE); NITRITE,URINE NEGATIVE (NEGATIVE); PROTEIN,URINE DIPSTICK 2+ (NEGATIVE); URINE UROBILINOGEN 0.2 mg/dL (0.2 - 1)
[2022-02-09 07:20] LABS: INR 1.02; PROTHROMBIN TIME 14.3 seconds (11.9-14.5)
[2022-02-09 07:20] LABS: AMPHETAMINES SCREEN,URINE NEGATIVE (NEGATIVE); PHENCYCLIDINE SCREEN,URINE NEGATIVE (NEGATIVE)
[2022-02-09 07:22] LABS: BENZODIAZEPINES SCREEN,URINE NEGATIVE (NEGATIVE)
[2022-02-09 07:26] LABS: ALBUMIN 3.4 g/dL (3.5-5.0); ALBUMIN/GLOBULIN RATIO 0.8 (0.8-2.0); ANION GAP 15.1 mmol/L (8-16); CALCIUM 9.1 mg/dL (8.4-10.2); CREATININE, SERUM 0.93 mg/dL (0.57-1.11); POTASSIUM 5.1 mmol/L (3.5-5.1)
[2022-02-09 07:30] LABS: BACTERIA,URINE MANY /HPF; EPITHELIAL CELLS,URINE FEW /LPF; RBC,URINE 0-5 /HPF (0-5)
[2022-02-09 07:39] LABS: B-TYPE NATRIURETIC PEPTIDE2 137.9 pg/mL (0-100)
[2022-02-09] MEDS ORDERED: IOPAMIDOL 370 MG/ML 200 ML INFUS..BTL INJ ONE (07:50)
[2022-02-09] MEDS ORDERED: SODIUM CHLORIDE 0.9% 50ML 50 ML ONE (07:50)
[2022-02-09] MEDS ORDERED: ALBUTEROL/IPRATROPIUM 3 ML NEB NEB ONE (08:45)
[2022-02-09] MEDS ORDERED: DIPHTH/TETANUS/ACEL. PERTUSSIS 0.5 ML SYR IM ONE (10:00)
[2022-02-09] MEDS ORDERED: METOPROLOL TARTRATE INJ 1 MG/ML VIAL IV PRN (10:45)
[2022-02-09] MEDS ORDERED: DEXTROSE 50% SYRINGE 50 ML IV PRN (10:45)
[2022-02-09 11:04] LABS: CHOL/HDL RATIO 5.9 (3.0-3.6)
[2022-02-09] MEDS: INSULIN REGULAR, HUMAN 100 UNIT/1 ML SQ SCH ×3 (11:30→20:42)
[2022-02-09] MEDS: SUCRALFATE 1 GM TAB PO SCH ×3 (11:30→20:41)
[2022-02-09] MEDS ORDERED: INSULIN REGULAR, HUMAN 100 UNIT/1 ML SQ ONE (11:45)
[2022-02-09] MEDS: BENZONATATE 100 MG CAP PO SCH ×2 (16:04→20:41)
[2022-02-09] MEDS: GABAPENTIN 300 MG CAP PO SCH (16:05)
[2022-02-09] MEDS: ATORVASTATIN 40 MG TAB PO SCH (20:41)
[2022-02-09] MEDS ORDERED: ACETAMINOPHEN 325 MG TAB PO SCH (23:00)
[2022-02-09] MEDS: ONDANSETRON HCL INJ 2MG/ML 2ML 2 MG/ML VIAL IV PRN (23:02)
[2022-02-09] MEDS: TRAMADOL HCL 50 MG TAB PO PRN (23:06)
[2022-02-09] MEDS ORDERED: TRAMADOL HCL 50 MG TAB ONE (23:07)
[2022-02-10] VITALS (25 sets, daily range): BP systolic 123–169; BP diastolic 75–98
[2022-02-10] MEDS: ALBUTEROL/IPRATROPIUM 3 ML NEB NEB SCH ×6 (00:45→20:00)
[2022-02-10 05:03] LABS: BASOPHILS % 0.2 % (0.0-1.0); HEMATOCRIT 33.3 % (34.2-44.1); HEMOGLOBIN 10.4 g/dL (12.0-16.0); LYMPHOCYTES # (AUTO) 1.4 (1.0-3.2); LYMPHOCYTES % 11.1 % (18.0-39.1); MEAN CORPUSCULAR HEMOGLOBIN 28.7 pg (28-32); MEAN CORPUSCULAR HGB CONC 31.2 g/dL (31-35); MEAN CORPUSCULAR VOLUME 91.7 fL (81-99); MONOCYTES % 8.1 % (4.4-11.3); NEUTROPHILS # (AUTO) 9.8 (2.1-6.9); PLATELET COUNT 283 x10e3/uL (140-360); RED BLOOD COUNT 3.63 x10e6/uL (3.6-5.1); RED CELL DISTRIBUTION WIDTH 14.7 % (11.7-14.4)
[2022-02-10 05:18] LABS: ALBUMIN 2.8 g/dL (3.5-5.0); ALBUMIN/GLOBULIN RATIO 0.8 (0.8-2.0); ANION GAP 12.1 mmol/L (8-16); CALCIUM 12.3 mg/dL (8.4-10.2); CREATININE, SERUM 0.64 mg/dL (0.57-1.11); POTASSIUM 4.1 mmol/L (3.5-5.1)
[2022-02-10] MEDS: ACETAMINOPHEN 325 MG TAB PO SCH ×2 (05:47)
[2022-02-10] MEDS: LEVOTHYROXINE SODIUM 50 MCG TAB PO SCH (05:47)
[2022-02-10] MEDS: ONDANSETRON HCL INJ 2MG/ML 2ML 2 MG/ML VIAL IV PRN ×2 (05:48→20:16)
[2022-02-10] MEDS: TRAMADOL HCL 50 MG TAB PO PRN (05:48)
[2022-02-10] MEDS: NICOTINE 21 MG/EA PATCH TOP SCH (08:22)
[2022-02-10] MEDS: BENZONATATE 100 MG CAP PO SCH ×3 (08:22→20:16)
[2022-02-10] MEDS: PANTOPRAZOLE SOD 40 MG TABEC PO SCH (08:22)
[2022-02-10] MEDS: SUCRALFATE 1 GM TAB PO SCH ×4 (08:22→20:16)
[2022-02-10] MEDS: GABAPENTIN 300 MG CAP PO SCH ×2 (08:22→16:00)
[2022-02-10] MEDS: CEFTRIAXONE 1 GM in SODIUM CHLORIDE 0.9% 50ML 50 ML IV SCH (08:22)
[2022-02-10] MEDS: INSULIN REGULAR, HUMAN 100 UNIT/1 ML SQ SCH ×4 (08:24→21:45)
[2022-02-10] MEDS ORDERED: ACETAMINOPHEN 325 MG TAB PO PRN (09:00)
[2022-02-10] MEDS ORDERED: PANTOPRAZOLE SOD 40 MG TABEC PO SCH (09:00)
[2022-02-10] MEDS ORDERED: METHYLPREDNISOLONE SOD SUCC 125 MG/2ML VIAL IV ONE (09:00)
[2022-02-10] MEDS: HYDROCODONE/APAP 7.5MG-325MG 1 EA TAB PO PRN ×2 (11:25→20:17)
[2022-02-10] MEDS: ATORVASTATIN 40 MG TAB PO SCH (20:16)
[2022-02-11] VITALS (27 sets, daily range): BP systolic 119–193; BP diastolic 66–179
[2022-02-11] MEDS: ONDANSETRON HCL INJ 2MG/ML 2ML 2 MG/ML VIAL IV PRN ×2 (03:03→11:00)
[2022-02-11] MEDS: HYDROCODONE/APAP 7.5MG-325MG 1 EA TAB PO PRN ×2 (03:03→09:18)
[2022-02-11 05:02] LABS: BASOPHILS % 0.2 % (0.0-1.0); HEMATOCRIT 34.4 % (34.2-44.1); HEMOGLOBIN 10.5 g/dL (12.0-16.0); LYMPHOCYTES # (AUTO) 1.7 (1.0-3.2); LYMPHOCYTES % 13.8 % (18.0-39.1); MEAN CORPUSCULAR HEMOGLOBIN 28.2 pg (28-32); MEAN CORPUSCULAR HGB CONC 30.5 g/dL (31-35); MEAN CORPUSCULAR VOLUME 92.5 fL (81-99); MONOCYTES # (AUTO) 0.9 (0.2-0.8); NEUTROPHILS # (AUTO) 9.8 (2.1-6.9); NEUTROPHILS % 78.2 % (38.7-80.0); PLATELET COUNT 285 x10e3/uL (140-360); RED BLOOD COUNT 3.72 x10e6/uL (3.6-5.1); RED CELL DISTRIBUTION WIDTH 14.6 % (11.7-14.4)
[2022-02-11 05:23] LABS: ALBUMIN 2.8 g/dL (3.5-5.0); ALBUMIN/GLOBULIN RATIO 0.8 (0.8-2.0); CALCIUM 9.1 mg/dL (8.4-10.2); CREATININE, SERUM 0.63 mg/dL (0.57-1.11)
[2022-02-11] MEDS: LEVOTHYROXINE SODIUM 50 MCG TAB PO SCH (06:17)
[2022-02-11] MEDS: ALBUTEROL/IPRATROPIUM 3 ML NEB NEB SCH ×5 (07:15→23:10)
[2022-02-11] MEDS: SUCRALFATE 1 GM TAB PO SCH ×4 (08:01→20:48)
[2022-02-11] MEDS: PANTOPRAZOLE SOD 40 MG TABEC PO SCH (08:02)
[2022-02-11] MEDS: GABAPENTIN 300 MG CAP PO SCH ×2 (08:02→15:22)
[2022-02-11] MEDS: CEFTRIAXONE 1 GM in SODIUM CHLORIDE 0.9% 50ML 50 ML IV SCH (08:02)
[2022-02-11] MEDS: BENZONATATE 100 MG CAP PO SCH ×3 (08:04→20:48)
[2022-02-11] MEDS: NICOTINE 21 MG/EA PATCH TOP SCH (08:04)
[2022-02-11] MEDS: INSULIN REGULAR, HUMAN 100 UNIT/1 ML SQ SCH ×4 (08:14→20:55)
[2022-02-11] MEDS: VALSARTAN 160 MG TAB PO SCH (10:56)
[2022-02-11] MEDS ORDERED: KETOROLAC TROMETHAMINE 30 MG/ML VIAL IV ONE (11:00)
[2022-02-11] MEDS: HYDROCODONE/APAP 10MG-325MG TAB PO PRN ×2 (15:19→19:59)
[2022-02-11] MEDS: ENOXAPARIN SOD INJ 40 MG/0.4 ML SYR SC SCH (16:17)
[2022-02-11] MEDS: ATORVASTATIN 40 MG TAB PO SCH (20:48)
[2022-02-12] VITALS (18 sets, daily range): BP systolic 107–174; BP diastolic 64–103
[2022-02-12] MEDS: HYDROCODONE/APAP 10MG-325MG TAB PO PRN ×4 (02:29→18:45)
[2022-02-12] MEDS: ALBUTEROL/IPRATROPIUM 3 ML NEB NEB SCH ×6 (03:00→23:25)
[2022-02-12] MEDS: TRAMADOL HCL 50 MG TAB PO PRN ×2 (04:58→10:50)
[2022-02-12 04:59] LABS: BASOPHILS % 0.2 % (0.0-1.0); HEMATOCRIT 37.4 % (34.2-44.1); HEMOGLOBIN 11.8 g/dL (12.0-16.0); LYMPHOCYTES # (AUTO) 1.7 (1.0-3.2); LYMPHOCYTES % 13.9 % (18.0-39.1); MEAN CORPUSCULAR HEMOGLOBIN 28.5 pg (28-32); MEAN CORPUSCULAR HGB CONC 31.6 g/dL (31-35); MEAN CORPUSCULAR VOLUME 90.3 fL (81-99); MONOCYTES # (AUTO) 0.8 (0.2-0.8); MONOCYTES % 6.6 % (4.4-11.3); NEUTROPHILS # (AUTO) 9.4 (2.1-6.9); NEUTROPHILS % 78.6 % (38.7-80.0); PLATELET COUNT 297 x10e3/uL (140-360); RED BLOOD COUNT 4.14 x10e6/uL (3.6-5.1); RED CELL DISTRIBUTION WIDTH 14.7 % (11.7-14.4)
[2022-02-12 05:15] LABS: ALBUMIN 2.7 g/dL (3.5-5.0); ALBUMIN/GLOBULIN RATIO 0.7 (0.8-2.0); ANION GAP 11.6 mmol/L (8-16); CALCIUM 8.8 mg/dL (8.4-10.2); CREATININE, SERUM 0.67 mg/dL (0.57-1.11); POTASSIUM 3.6 mmol/L (3.5-5.1)
[2022-02-12] MEDS: LEVOTHYROXINE SODIUM 50 MCG TAB PO SCH (06:23)
[2022-02-12] MEDS: SUCRALFATE 1 GM TAB PO SCH ×4 (07:57→21:56)
[2022-02-12] MEDS ORDERED: METOPROLOL TARTRATE 25 MG TAB PO SCH (08:00)
[2022-02-12] MEDS: INSULIN REGULAR, HUMAN 100 UNIT/1 ML SQ SCH ×4 (09:50→21:57)
[2022-02-12] MEDS: CEFTRIAXONE 1 GM in SODIUM CHLORIDE 0.9% 50ML 50 ML IV SCH (09:51)
[2022-02-12] MEDS: VALSARTAN 160 MG TAB PO SCH (09:52)
[2022-02-12] MEDS: PANTOPRAZOLE SOD 40 MG TABEC PO SCH (09:52)
[2022-02-12] MEDS: GABAPENTIN 300 MG CAP PO SCH ×2 (09:52→16:28)
[2022-02-12] MEDS: NICOTINE 21 MG/EA PATCH TOP SCH (09:52)
[2022-02-12] MEDS: BENZONATATE 100 MG CAP PO SCH ×3 (09:52→21:56)
[2022-02-12] MEDS: METOPROLOL TARTRATE 25 MG TAB PO SCH ×2 (10:47→21:56)
[2022-02-12] MEDS: ENOXAPARIN SOD INJ 40 MG/0.4 ML SYR SC SCH (16:28)
[2022-02-12] MEDS: ATORVASTATIN 40 MG TAB PO SCH (21:56)
[2022-02-13 00:45] VITALS: BP 126/74
[2022-02-13] MEDS: HYDROCODONE/APAP 10MG-325MG TAB PO PRN (02:31)
[2022-02-13] MEDS: ALBUTEROL/IPRATROPIUM 3 ML NEB NEB SCH ×3 (03:30→11:15)
[2022-02-13 05:14] VITALS: BP 147/83
[2022-02-13] MEDS: LEVOTHYROXINE SODIUM 50 MCG TAB PO SCH (06:28)
[2022-02-13] MEDS ORDERED: Benzonatate PO (06:41)
[2022-02-13] MEDS ORDERED: ZITHROMAX500 MG PO (06:41)
[2022-02-13] MEDS ORDERED: NICODERM CQ1 EAC2 TOP (06:41)
[2022-02-13] MEDS ORDERED: CEPHALEXIN500 MG PO (06:41)
[2022-02-13 08:10] VITALS: BP 139/88
[2022-02-13 09:00] VITALS: BP 139/88
[2022-02-13] MEDS: SUCRALFATE 1 GM TAB PO SCH (09:37)
[2022-02-13] MEDS: INSULIN REGULAR, HUMAN 100 UNIT/1 ML SQ SCH (09:38)
[2022-02-13] MEDS: VALSARTAN 160 MG TAB PO SCH (09:39)
[2022-02-13] MEDS: GABAPENTIN 300 MG CAP PO SCH (09:39)
[2022-02-13] MEDS: METOPROLOL TARTRATE 25 MG TAB PO SCH (09:39)
[2022-02-13] MEDS: NICOTINE 21 MG/EA PATCH TOP SCH (09:40)
[2022-02-13] MEDS: BENZONATATE 100 MG CAP PO SCH (09:40)
[2022-02-13] MEDS: PANTOPRAZOLE SOD 40 MG TABEC PO SCH (09:43)
[2022-02-13 11:49] VITALS: BP 123/71
== END 2022-02-13 12:58 | disposition home or self-care (01) | DRG 871 ==
LOC: ER 07:26 → ERHOLD 10:01 → ICU 10:26 → MED/SURG3 02-12 13:17
PROVIDERS: ADMIT Internal Medicine; ATTEND Internal Medicine
PROC: 5A09457 Assistance with Respiratory Ventilation, 24-96 Consecutive Hours, Continuous Positive Airway Pressure (ICD-10-PCS; principal; 2022-02-09)
PROC: 3E03329 Introduction of Other Anti-infective into Peripheral Vein, Percutaneous Approach (ICD-10-PCS; 2022-02-09)
DX: A41.9 Sepsis, unspecified organism (principal); J18.9 Pneumonia, unspecified organism; J96.22 Acute and chronic respiratory failure with hypercapnia; J96.21 Acute and chronic respiratory failure with hypoxia; G93.41 Metabolic encephalopathy; J44.0 Chronic obstructive pulmonary disease with (acute) lower respiratory infection; S22.42XA Multiple fractures of ribs, left side, initial encounter for closed fracture; N39.0 Urinary tract infection, site not specified; J44.1 Chronic obstructive pulmonary disease with (acute) exacerbation; E87.1 Hypo-osmolality and hyponatremia; F11.20 Opioid dependence, uncomplicated; F17.210 Nicotine dependence, cigarettes, uncomplicated; Z99.81 Dependence on supplemental oxygen; W01.0XXA Fall on same level from slipping, tripping and stumbling without subsequent striking against object, initial encounter; Y92.019 Unspecified place in single-family (private) house as the place of occurrence of the external cause; N89.8 Other specified noninflammatory disorders of vagina; E03.9 Hypothyroidism, unspecified; E11.42 Type 2 diabetes mellitus with diabetic polyneuropathy; Z90.49 Acquired absence of other specified parts of digestive tract; Z96.82 Presence of neurostimulator; I51.7 Cardiomegaly; Z20.822 Contact with and (suspected) exposure to COVID-19
CPT/HCPCS: 36415; 51700; 70450; 71045; 71260; 72125; 72170; 74177; 80053; 80061; 80307; 81001; 82948; 83036; 83605; 83880; 84484; 85025; 85610; 85730; 87040; 87086; 87186; 90714; 93005; 93306; 94640; 94660; 94799; 96372; 97139; 99284; J0456; J0696; J1650; J1817; J1885; J2405; J2930; J7030; J7050; Q9967; U0002

== ENCOUNTER → 2022-08-03 | Outpatient (CLI) | payer MEDICARE ==
[~2022-08-03] MED LIST changes: +Benzonatate PO; +CEPHALEXIN500 MG PO; +NICODERM CQ1 EAC2 TOP; +ZITHROMAX500 MG PO
== END ==
LOC: RAD 10:52
PROVIDERS: ATTEND Internal Medicine Critical Care Medicine
DX: J44.9 Chronic obstructive pulmonary disease, unspecified (principal)
CPT/HCPCS: 71046

== ENCOUNTER → 2025-02-21 | Outpatient (REF) | payer MEDICARE ==
[~2025-02-21] MED LIST changes: +CLOPIDOGREL75 MG PO; +LISINOPRIL10 MG PO; +OMEGA 3 1,0001 EACH PO
[2025-02-21 13:53] LABS: BASOPHILS % 0.4 % (0.0-1.0); HEMATOCRIT 35.6 % (34.2-44.1); HEMOGLOBIN 11.6 g/dL (12.0-16.0); LYMPHOCYTES # (AUTO) 1.8 (1.0-3.2); MEAN CORPUSCULAR HEMOGLOBIN 29.9 pg (28-32); MEAN CORPUSCULAR HGB CONC 32.6 g/dL (31-35); MEAN CORPUSCULAR VOLUME 91.8 fL (81-99); MONOCYTES # (AUTO) 0.8 (0.2-0.8); MONOCYTES % 7.1 % (4.4-11.3); NEUTROPHILS # (AUTO) 8.7 (2.1-6.9); NEUTROPHILS % 76.3 % (38.7-80.0); PLATELET COUNT 235 x10e3/uL (140-360); RED BLOOD COUNT 3.88 x10e6/uL (3.6-5.1); RED CELL DISTRIBUTION WIDTH 12.5 % (11.7-14.4); WHITE BLOOD COUNT 11.33 x10e3/uL (4.8-10.8)
== END ==
LOC: LAB 13:44 → EDSTATUS 03-15 12:30
PROVIDERS: ATTEND Internal Medicine Gastroenterology
DX: Z01.818 Encounter for other preprocedural examination (principal); Z12.11 Encounter for screening for malignant neoplasm of colon; R10.9 Unspecified abdominal pain; R12 Heartburn; K21.9 Gastro-esophageal reflux disease without esophagitis; R14.0 Abdominal distension (gaseous); R19.7 Diarrhea, unspecified; Z80.0 Family history of malignant neoplasm of digestive organs; Z86.0100 Personal history of colon polyps, unspecified
CPT/HCPCS: 36415; 85025